=== PATIENT | female | born 1955 | race Caucasian/White ===

== ENCOUNTER 2016-10-30 07:43 | Emergency (ER) | payer OTHER ==
--- NOTE | 2016-10-30 08:06 | C.PDOC ---
History Of Present Illness 61-year-old female presents to the emergency department with complaints of left thigh pain, that started at 13:00 three days ago. Pain has been persistent in nature, associated with (subjective) swelling of thigh, and pain sometimes radiates to the left buttock and hip. Pain worsens with movement/ambulation. Patient denies falls or injuries, chest pain, shortness of breath, dysuria/ hematuria, fever, urinary retention, bowel/bladder incontinence. She has taken buprofen and Meloxicam with minimal relief. Denies a Hx of blood clots in herself/family. Time Seen by Provider: 10/30/16 07:44 Chief Complaint (Nursing): Lower Extremity Problem/Injury History Per: Patient History/Exam Limitations: no limitations Onset/Duration Of Symptoms: Days Current Symptoms Are (Timing): Still Present Severity: Moderate Past Medical History Reviewed: Historical Data, Nursing Documentation, Vital Signs Vital Signs: Last Vital Signs Temp 98.7 F 10/30/16 09:54 Pulse 82 10/30/16 09:54 Resp 16 10/30/16 09:54 BP 105/67 10/30/16 09:54 Pulse Ox 97 10/30/16 18:27 - Medical History PMH: Fractures (left ankle) Family History: States: No Known Family Hx - Social History Hx Alcohol Use: No Hx Substance Use: No Review Of Systems Except As Marked, All Systems Reviewed And Found Negative. Constitutional: Negative for: Fever Cardiovascular: Negative for: Chest Pain, Palpitations Respiratory: Negative for: Cough, Shortness of Breath Gastrointestinal: Negative for: Nausea, Vomiting, Abdominal Pain, Diarrhea Musculoskeletal: Positive for: Leg Pain. Negative for: Back Pain Skin: Negative for: Rash Neurological: Negative for: Weakness, Numbness, Headache Physical Exam - Physical Exam Appears: Well, Non-toxic, Other (Anxious, in mild pain) Skin: Normal Color, Warm, Dry, No Rash Head: Normacephalic Eye(s): bilateral: Normal Inspection Oral Mucosa: Moist Cardiovascular: Rhythm Regular Respiratory: Normal Breath Sounds, No Rales, No Rhonchi, No Wheezing Back: Normal Inspection, No CVA Tenderness, No Vertebral Tenderness, No Paraspinal Tenderness Extremity: Tenderness, No Pedal Edema, No Calf Tenderness, Capillary Refill (<2 seconds all digits ), No Deformity, No Swelling, Other (LEFT LOWER EXT: difficult to appreciate swelling of left thigh due to body habitus, (+) diffuse tenderness to palpation of right tthigh. No tenderness to gluteal area or lowback. no rashes/erythema) Extremity: Bilateral: Atraumatic, Normal ROM Pulses: Left Dorsalis Pedis: Normal, Right Dorsalis Pedis: Normal Neurological/Psych: Oriented x3, Normal Motor, Normal Sensation Gait: Steady ED Course And Treatment O2 Sat by Pulse Oximetry: 97 (RA) Pulse Ox Interpretation: Normal - Other Rad XR: FEMUR X-Ray: Viewed By Me, Read By Radiologist Interpretation: Accession No. : [id number]. Patient Name / ID : DOM [id number] / [id number]. Exam Date : 10/30/2016 08:33:45 ( Approved ). Study Comment : Sex / Age : F / 61Y. Creator : ANASTASIA PAZ. Dictator : Jad Ford MD. [employer] Cashier : [employer] Grade Teacher : Jad Ford MD. Approver2 : Report Date : 10/30/2016 08:59:48. My Comment : . PROCEDURE: Left Femur Radiographs. Left femur. HISTORY: left femur pain. COMPARISON: None. TECHNIQUE: AP and Lateral Radiographs of the left femur. FINDINGS: FEMUR: Normal. No fracture. SOFT TISSUES: Normal. OTHER FINDINGS: None. IMPRESSION : Unremarkable radiographs of the left femur. Progress Note: X-Ray of left femus and venous doppler ordered and reviewed. Patient given PO Naprosyn and Flexeril. 9:45am- On reassessment, patient's pain has significantly improved, and she is ambulating normally in the ED. Xrays and venous doppler neg. Patient given Rxs for Naprosyn and Tylenol #3, and was instructed to follow up with PMD/clinic in 1-2 days. She understands she should return to ED if symptoms worsen. Reevaluation Time: 09:15 Reassessment Condition: Improved (On reassessment, pain has improved but patient still has some pain and is requesting medication. PO tylenol #3 given.) Disposition Counseled Patient/Family Regarding: Studies Performed, Diagnosis, Need For Followup, Rx Given - Disposition Referrals: [facility] [Outside] Disposition: HOME/ ROUTINE Disposition Time: 09:45 Condition: STABLE Additional Instructions: SEGUIMIENTO CON WHIPPLE DOCTOR / CLNICA EN 1-2 MOORE USE LOS MEDICAMENTOS QUE DULCE MARIA NECESARIOS DEVUELVA A LA MAYURI DE EMERGENCIA SI LOS SNTOMAS EMPEORARAN Prescriptions: Acetaminophen with Codeine [Tylenol with Codeine #3 Tablet] 1 each PO Q6 PRN # 12 tablet PRN Reason: pain Naproxen [Naprosyn Tab] 375 mg PO BID PRN #15 tab PRN Reason: pain Instructions: Arthralgia (ED), Leg Pain (ED) Forms: Work Excuse Print Language: CHILEAN - POA Present On Arrival: None - Clinical Impression Clinical Impression: Left thigh pain - Scribe Statement The provider has reviewed the documentation as recorded by the Scribtiffanie Gregorio All medical record entries made by the Scribe were at my direction and personally dictated by me. I have reviewed the chart and agree that the record accurately reflects my personal performance of the history, physical exam, medical decision making, and the department course for this patient. I have also personally directed, reviewed, and agree with the discharge instructions and disposition.
[2016-10-30] MEDS ORDERED: Naproxen 550 mg Tab PO STA (08:22)
[2016-10-30] MEDS ORDERED: Naproxen 550 mg Tab PO ONE (08:33)
--- NOTE | 2016-10-30 09:15 | RAD ---
PROCEDURE: Left Femur Radiographs. Left femur HISTORY: left femur pain COMPARISON: None. TECHNIQUE: AP and Lateral Radiographs of the left femur. FINDINGS: FEMUR: Normal. No fracture. SOFT TISSUES: Normal. OTHER FINDINGS: None. IMPRESSION: Unremarkable radiographs of the left femur.
[2016-10-30] MEDS ORDERED: Acetaminophen-Codeine 300/30 mg Tab PO STA (09:20)
[2016-10-30] MEDS ORDERED: Acetaminophen-Codeine 300/30 mg Tab PO ONE (09:45)
[2016-10-30 09:55] VITALS: BP 105/67; PULSE 82; RESP 16; TEMP 98.7
--- NOTE | 2016-10-30 13:05 | VASCLAB ---
PROCEDURE: Left Lower Extremity Venous Duplex Exam. HISTORY: left thigh pain, swelling, r/o DVT PRIORS: None. TECHNIQUE: Left common femoral, femoral, popliteal and posterior tibial, peroneal and great saphenous veins were evaluated. Flow was assessed with color Doppler, compressibility, assessment of phasic flow and augmentation response. Report prepared by INDU Isaac, RVT FINDINGS: LEFT: 1. Common Femoral Vein: 1.1. Compressibility - Fully compressible: Thrombus - None : Flow - Phasic: Augmentation -Normal: Reflux - None. 2. Femoral Vein: 2.1. Compressibility - Fully compressible: Thrombus - None: Flow - Phasic: Augmentation -Normal: Reflux - None. 3. Popliteal Vein: 3.1. Compressibility - Fully compressible: Thrombus - None: Flow - Phasic: Augmentation -Normal: Reflux - None. 4. Posterior Tibial Vein: 4.1. Compressibility - Fully compressible: Thrombus - None: Flow - Phasic: Augmentation -Normal: Reflux - None. 5. Peroneal Vein: 5.1. Compressibility - Fully compressible: Thrombus - None: Flow - Phasic: Augmentation -Normal: Reflux - None. 6. Great Saphenous Vein: 6.1. Compressibility - Fully compressible: Thrombus - None: Flow - Phasic: Augmentation - Normal: Reflux - None. OTHER FINDINGS: IMPRESSION: No evidence of deep or superficial vein thrombosis of the left lower extremity with excellent venous flow. Normal valve function noted of the left side. Normal venous flow noted in the right common femoral vein.
[2016-10-30 18:27] VITALS: O2SAT 97
== END 2016-10-30 10:05 | disposition home or self-care (01) ==
LOC: C.ER 07:43
DX: M79.652 Pain in left thigh (principal)

== ENCOUNTER 2018-10-17 06:42 | Day surgery (SDC) | payer OTHER ==
[2018-10-17 06:56] VITALS: BMI 28.3
[2018-10-17] MEDS ORDERED: Propofol 10 mg/ml Inj (20 ML) ONE (08:13)
[2018-10-17] MEDS ORDERED: Atropine 0.4 mg/ml Inj (1 mL) ONE (08:52)
[2018-10-17 10:06] VITALS: BP 111/68; PULSE 60; RESP 13; TEMP 97.5; O2SAT 100
== END 2018-10-17 09:55 | disposition home or self-care (01) ==
LOC: C.ENDO 06:42
PROVIDERS: ATTEND Internal Medicine Gastroenterology
DX: Z12.11 Encounter for screening for malignant neoplasm of colon (principal); K21.9 Gastro-esophageal reflux disease without esophagitis; D12.2 Benign neoplasm of ascending colon; D12.4 Benign neoplasm of descending colon; K64.1 Second degree hemorrhoids
CPT/HCPCS: 45380; 45381; 45385; 88305; J0461; J2704